=== PATIENT | female | born 1945 | race Caucasian/White ===

== ENCOUNTER 2019-09-03 10:01 | Emergency (ER) | payer MEDICARE, OTHER ==
[~2019-09-03] VITALS: Ht 144.8 cm; Wt 52.2 kg
[2019-09-03] MEDS ORDERED: ZOLOFT100 MG PO (10:21)
[2019-09-03] MEDS ORDERED: NEURONTIN 300M300 M2 PO (10:22)
[2019-09-03] MEDS ORDERED: ZUPLENZ8 MG PO (10:22)
[2019-09-03] MEDS ORDERED: LASIX 40 MG TAB40 MG PO (10:23)
[2019-09-03] MEDS ORDERED: MOVANTIK25 MG PO (10:23)
[2019-09-03] MEDS ORDERED: [UNRECOGNIZED DRUG - OTHER] PO (10:25)
[2019-09-03] MEDS ORDERED: SENOKOT8.6 MG PO (10:26)
[2019-09-03] MEDS ORDERED: NEXIUM20 M1 PO (10:26)
[2019-09-03] MEDS ORDERED: CORAL CALCIUM390 MG PO (10:28)
[2019-09-03] MEDS ORDERED: PERCOCET 10-321 EAC1 PO (10:29)
[2019-09-03] MEDS ORDERED: [UNRECOGNIZED DRUG - OTHER] PO (10:30)
[2019-09-03] MEDS ORDERED: FENTANYL1 EAC2 TRANSDERM (10:31)
[2019-09-03] MEDS ORDERED: MITIGARE0.6 MG PO (10:31)
[2019-09-03 11:37] LABS: ABSOLUTE BASOPHILS 0.1 thou/uL (0.0-0.2); ABSOLUTE LYMPHOCYTES 1.3 thou/uL (0.8-5.3); ABSOLUTE MONOCYTES 1.1 thou/uL (0.0-1.2); ABSOLUTE NEUTROPHILS 7.4 thou/uL (1.6-8.1); BASOPHILS 0.7 %; EOSINOPHILS 0.4 %; HEMATOCRIT 31.7 % (37.0-47.0); HEMOGLOBIN 10.8 gm/dL (12.0-15.0); LYMPHOCYTES 13.4 %; MCH 27.2 pg (26.0-34.0); MONOCYTES 11.2 %; MPV 6.8 fl. (7.2-11.1); NUCLEATED RBCS 0 /100WBC; PLATELET COUNT* 230 thou/uL (150-400); POLYS 74.3 %; RBC 3.96 mil/uL (4.20-5.00); RDW-CV 14.9 % (10.5-14.5)
[2019-09-03 11:43] LABS: CREATININE 1.2 mg/dL (0.6-1.3)
[2019-09-03 11:45] LABS: POTASSIUM 2.1 mmol/L (3.5-5.1)
[2019-09-03 11:47] LABS: URINE BILIRUBIN NEGATIVE (Negative); URINE BLOOD 2+ (Negative); URINE CLARITY CLEAR; URINE COLOR YELLOW; URINE GLUCOSE-RANDOM NEGATIVE (Negative); URINE KETONES NEGATIVE (Negative); URINE LEUKOCYTES-REFLEX NEGATIVE (Negative); URINE NITRITE-REFLEX NEGATIVE (Negative); URINE PROTEIN 2+ (Negative); URINE UROBILINOGEN 0.2 E.U./dl (0.2-1.0)
[2019-09-03 11:48] LABS: ALBUMIN 2.7 g/dL (3.4-5.0); TOTAL BILIRUBIN 0.4 mg/dL (<0.1-1.0); TOTAL PROTEIN 7.1 g/dL (6.4-8.2); URIC ACID* 2.2 mg/dL (2.6-7.2)
[2019-09-03 11:58] LABS: CASTS None Seen /LPF (None Seen); CRYSTALS None Seen /LPF (None Seen); MUCUS 0-3 Light strn/LPF (None Seen); SQUAMOUS 4-10 Moderate /LPF (0-3); URINE RBC 3-10 Few /HPF (0-2); URINE WBC-REFLEX 0-5 Rare /HPF (0-5)
--- NOTE | 2019-09-03 16:03 | EKG ---
[place] [address] ELECTROCARDIOGRAM REPORT Name: GUERLINE FIELD Room: 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1945 Requested By: Piter Mejia Order Number: [id number] MD: Chele Hastings Measurements Intervals [place] Rate: 80 P: [place]: 206 QRS: 88 QRSD: 104 T: 64 QT: 400 QTc: 462 Interpretive Statements Atrial-paced rhythm Borderline right axis deviation Low voltage, extremity leads nonspecific st changes No previous ECG available for comparison Electronically Signed On 09-03-2019 16:01:59 CDT by Chele Hastings [email or web address] <ELECTRONICALLY SIGNED> By: Chele Hastings MD, [facility] 09/03/19 1601 1157 1157 Chele Hastings MD, FAC /EPI
[2019-09-03] MEDS ORDERED: KEFLEX500 M1 PO (17:15)
[2019-09-03 17:40] VITALS: BP 117/60
== END 2019-09-03 17:41 | disposition home or self-care (01) ==
LOC: M.ERS 10:01
PROVIDERS: Physician Assistant
DX: L03.113 Cellulitis of right upper limb (principal); E87.6 Hypokalemia; M79.7 Fibromyalgia; M19.90 Unspecified osteoarthritis, unspecified site; Z90.49 Acquired absence of other specified parts of digestive tract; Z90.710 Acquired absence of both cervix and uterus; Z91.040 Latex allergy status; Z88.6 Allergy status to analgesic agent